=== PATIENT | male | born 1980 | race Caucasian/White ===

== ENCOUNTER 2019-04-28 18:51 | Emergency (ER) | payer SELFPAY ==
[~2019-04-28] VITALS: Ht 185.4 cm; Wt 88.5 kg
--- NOTE | ~2019-04-28 | EKG ---
[place], [place] ELECTROCARDIOGRAM REPORT NAME: YAKOV DAVIS JR UNIT #: [id number] ROOM: DOCTOR: EPIPHANY DRAFT REPORT BIRTHDATE: [birth year] [facility] Test Date: 2019-04-28 Test Time: 18:52:30 Pat Name: YAKOV DAVIS Department: Room: Gender: [place]: : 1980 Requested By: NITESH GRAHAM Order Number: [id number] Reading MD: Kathy Jara Measurements Intervals [place] Rate: 80 P: 45 [place]: 170 QRS: 78 QRSD: 102 T: 42 QT: 400 QTc: 462 Interpretive Statements Sinus rhythm Left ventricular hypertrophy Electronically Signed On 04-30-2019 8:56:46 PDT by Kathy Jara CM:EKGRPT:ELECTROCARDIOGRAM REPORT [id number] NITESH ROQUE DRAFT REPORT NITESH GRAAHM MD
[~2019-04-28 18:51] MED LIST: ANAPROX DS550 MG PO; ATARAX,VISTARIL50 MG PO; CARAFATE1 G1 PO; CARBIDOPA/LEVOD1 TA1 PO; CLINDAMYCIN HC300 MG PO; Carafate1 GM PO; DAYPRO600 M1 PO; DECADRON4 M1 PO; GOOD NEIGHBOR150 MG PO; HYDROCODONE BIT1 T11 PO; MEDROL DOSEPAK4 MG PO; NEXIUM I.V.40 MG IV; NKHM; PANTOPRAZOLE SO40 MG PO; PROTONIX40 MG PO; ROBAXIN-750750 MG PO; ROBAXIN750 MG PO; VICODIN 500 MG-1 TAB PO; VOLTAREN50 M1 PO; ZANTAC 300300 MG PO; ZOFRAN 4 MG ED2 TAB PO
[2019-04-28 19:22] LABS: BASO # 0.1 10*3/uL (0.0-0.1); BASO % 0.8 % (0.0-1.0); EOS # 0.1 10*3/uL (0.0-0.4); EOS % 0.8 % (1.0-4.0); HEMATOCRIT 42.9 % (42.0-52.0); HEMOGLOBIN 14.4 g/dl (14.0-18.0); LYMPH # 2.7 10*3/uL (1.3-4.4); LYMPH % 29.4 % (27.0-41.0); MEAN CELL VOLUME 91.7 fl (80.0-94.0); MEAN CORPUSCULAR HGB 30.8 pg (27.0-31.0); MEAN CORPUSCULAR HGB CONC 33.6 g/dl (33.0-37.0); MEAN PLATELET VOLUME 10.8 fl (9.6-12.3); MONO # 0.6 10*3/uL (0.1-1.0); MONO % 6.8 % (3.0-9.0); NEUT # 5.8 10*3/uL (2.3-7.9); PLATELET COUNT AUTOMATED 191 10*3/uL (130-400); RED BLOOD COUNT 4.68 10*6/uL (4.50-5.90); RED CELL DISTRI WIDTH 12.9 % (0-14.5); WHITE BLOOD COUNT 9.3 10*3/uL (4.8-10.8)
[2019-04-28 19:32] LABS: ACT PARTIAL THROMBO TIME 28.2 SECONDS (20.0-32.1)
[2019-04-28 19:42] LABS: ALBUMIN 3.7 gm/dl (3.1-4.5); BUN 14 mg/dl (7-24); CHLORIDE 107 mmol/L (98-107); CREATININE 0.86 mg/dL (0.70-1.30); POTASSIUM 3.8 mmol/L (3.5-5.1); SGOT/AST 10 IU/L (3-35); SGPT/ALT 13 U/L (12-78); SODIUM 139 mmol/L (136-145); TOTAL PROTEIN 6.9 gm/dL (6.4-8.2)
[2019-04-28 19:44] LABS: ALKALINE PHOSPHATASE 63 U/L (45-117)
[2019-04-28 19:47] LABS: TROPONIN I < 0.015 ng/ml (<0.045)
== END 2019-04-28 20:07 ==
LOC: ED 18:51
PROVIDERS: Emergency Medicine
DX: R07.89 Other chest pain (principal); I10 Essential (primary) hypertension; K21.9 Gastro-esophageal reflux disease without esophagitis; E07.89 Other specified disorders of thyroid; F17.200 Nicotine dependence, unspecified, uncomplicated; Z91.030 Bee allergy status; Z88.0 Allergy status to penicillin; Z79.899 Other long term (current) drug therapy

== ENCOUNTER 2019-05-09 16:07 | Emergency (ER) | payer SELFPAY ==
[~2019-05-09] VITALS: Ht 182.8 cm; Wt 81.6 kg
--- NOTE | ~2019-05-09 | EKG ---
[place], [place] ELECTROCARDIOGRAM REPORT NAME: [id number] UNIT #: [id number] ROOM: DOCTOR: EPIPHANY DRAFT REPORT BIRTHDATE: [birth year] [facility] Test Date: 2019-05-09 Test Time: 17:04:23 Pat Name: YAKOV DAVIS Department: ER Room: 4 Gender: M [employer] Professor: : 1980 Requested By: CORNELIO HAMEED Order Number: [id number] Reading MD: Prasanna Rosado MD Measurements Intervals [place] Rate: 71 P: 46 MA: 183 QRS: 78 QRSD: 102 T: 48 QT: 435 QTc: 473 Interpretive Statements Sinus rhythm Left ventricular hypertrophy Compared to ECG 04/28/2019 18:52:30 No significant changes Electronically Signed On 05-10-2019 14:49:01 PDT by Prasanna Rosado MD CM:EKGRPT:ELECTROCARDIOGRAM REPORT [id number] CORNELIO HAMEED EPIPHANY DRAFT REPORT CORNELIO HAMEED
[2019-05-09 17:10] LABS: BASO # 0.1 10*3/uL (0.0-0.1); BASO % 0.7 % (0.0-1.0); EOS # 0.1 10*3/uL (0.0-0.4); HEMATOCRIT 42.9 % (42.0-52.0); HEMOGLOBIN 14.5 g/dl (14.0-18.0); LYMPH # 3.8 10*3/uL (1.3-4.4); LYMPH % 37.1 % (27.0-41.0); MEAN CELL VOLUME 93.1 fl (80.0-94.0); MEAN CORPUSCULAR HGB 31.5 pg (27.0-31.0); MEAN CORPUSCULAR HGB CONC 33.8 g/dl (33.0-37.0); MEAN PLATELET VOLUME 10.4 fl (9.6-12.3); MONO # 0.7 10*3/uL (0.1-1.0); MONO % 6.7 % (3.0-9.0); NEUT # 5.5 10*3/uL (2.3-7.9); NEUT % 54.2 % (47.0-73.0); PLATELET COUNT AUTOMATED 193 10*3/uL (130-400); RED BLOOD COUNT 4.61 10*6/uL (4.50-5.90); RED CELL DISTRI WIDTH 12.7 % (0-14.5); WHITE BLOOD COUNT 10.1 10*3/uL (4.8-10.8)
[2019-05-09 17:26] LABS: ALBUMIN 3.5 gm/dl (3.1-4.5); ALKALINE PHOSPHATASE 61 U/L (45-117); BUN 14 mg/dl (7-24); CHLORIDE 107 mmol/L (98-107); CREATININE 0.93 mg/dL (0.70-1.30); POTASSIUM 4.1 mmol/L (3.5-5.1); SGOT/AST 12 IU/L (3-35); SGPT/ALT 14 U/L (12-78); SODIUM 141 mmol/L (136-145); TOTAL PROTEIN 6.7 gm/dL (6.4-8.2)
[2019-05-09 17:27] LABS: ACETAMINOPHEN (TYLENOL) < 5.0 ug/ml (10-30); ETHYL ALCOHOL < 3.0 mg/dl (<3); TROPONIN I < 0.015 ng/ml (<0.045)
[2019-05-09 17:40] LABS: BILIRUBIN NEGATIVE (NEGATIVE); BLOOD NEGATIVE (NEGATIVE); CLARITY SL CLOUDY (CLEAR); COLOR YELLOW (YELLOW); GLUCOSE NEGATIVE (NEGATIVE); KETONE TRACE (NEGATIVE); LEUKO ESTERASE NEGATIVE (NEGATIVE); NITRITE NEGATIVE (NEGATIVE); SPECIFIC GRAVITY 1.015 (1.005-1.030)
[2019-05-09 18:12] LABS: URINE AMPHETAMINES < 1000 (1000ng/ml); URINE BARBITURATES < 200 (200ng/ml); URINE BENZODIAZEPINES > 200 (200ng/ml); URINE CANNABINOIDS (THC) > 50 (50ng/ml); URINE COCAINE > 300 (300ng/ml); URINE METHADONE < 300 (300ng/ml); URINE OPIATES < 300 (300ng/ml)
[2019-05-09 18:14] LABS: MUCOUS 1+
[2019-05-09 18:16] LABS: URINE PHENCYCLIDINE < 25 (25ng/ml)
== END 2019-05-09 17:20 | disposition left against medical advice (07) ==
LOC: ED 16:07
PROVIDERS: Nurse Practitioner
DX: T42.4X1A Poisoning by benzodiazepines, accidental (unintentional), initial encounter (principal); F12.90 Cannabis use, unspecified, uncomplicated; Z91.030 Bee allergy status; Z88.0 Allergy status to penicillin; Z79.899 Other long term (current) drug therapy; Y92.89 Other specified places as the place of occurrence of the external cause

== ENCOUNTER → 2020-05-16 | Outpatient (CLI) | payer OTHER | END | disposition home or self-care (01) | LOC: RAD 12:05 | DX: S39.012A Strain of muscle, fascia and tendon of lower back, initial encounter (principal); M48.061 Spinal stenosis, lumbar region without neurogenic claudication; X58.XXXA Exposure to other specified factors, initial encounter; Y93.89 Activity, other specified; Y92.89 Other specified places as the place of occurrence of the external cause; Y99.8 Other external cause status ==

== ENCOUNTER → 2020-08-08 | Outpatient (CLI) | payer OTHER | END | disposition home or self-care (01) | LOC: COVID19 00:25 | PROVIDERS: ATTEND Family Medicine | DX: Z20.828 Contact with and (suspected) exposure to other viral communicable diseases (principal) ==